=== PATIENT | female | born 1950 | race Caucasian/White ===

== ENCOUNTER 2017-10-18 10:08 | Day surgery (SDC) | payer OTHER ==
[2017-10-10 13:53] VITALS: BMI 38.7
[2017-10-18] MEDS ORDERED: PROPOFOL 20 ML ONE (11:28)
[2017-10-18] MEDS ORDERED: ONDANSETRON 4 MG/2 ML VIAL IVPUSH PRN (12:14)
[2017-10-18] MEDS ORDERED: oxyCODONE HCL 5 MG TABLET PO PRN (12:14)
[2017-10-18] MEDS ORDERED: LACTATED RINGERS SOLUTION 1,000 ML IV SCH (12:15)
[2017-10-18 13:25] VITALS: TEMP 98
[2017-10-18 13:37] VITALS: BP 122/73; PULSE 66
--- NOTE | 2017-10-23 19:01 | OP ---
DATE OF OPERATION: 10/18/2017 PREOPERATIVE DIAGNOSIS: Left carpal tunnel syndrome. POSTOPERATIVE DIAGNOSIS: Left carpal tunnel syndrome. OPERATIVE PROCEDURE: Left carpal tunnel release. ANESTHESIA: Local with sedation. COMPLICATIONS: None. ESTIMATED BLOOD LOSS: Minimal. INDICATION FOR PROCEDURE: The patient is a female with the above finding, indicated for operative treatment. Risks, benefits, and alternatives were discussed with the patient at length. Proper informed consent was obtained. PROCEDURE: After proper identification of the patient and the correct operative site, patient was brought to the operating room and placed supine on the operative table. Prominences were well padded. Sedation was given by the anesthesiologist. Local anesthesia was given with 2% lidocaine. Left upper extremity was prepped and draped in the usual sterile fashion. A well-padded tourniquet was placed with a sterile prep. Esmarch bandage to exsanguinate the left upper extremity. Tourniquet was inflated to 250 mmHg. A longitudinal incision was made over the proximal aspect of the palm. Incision was taken sharply through the skin with blunt and sharp dissection through the subcutaneous tissues. Palmar fascia was divided longitudinally. Transcarpal ligament along with the distal 4 cm of the antebrachial fascia was divided longitudinally under direct visualization with loupe magnification. This provided complete release of the median nerve at the wrist. Wound was irrigated with copious amounts of normal saline, repaired with a 5-0 nylon suture. Sterile dressings were applied. Patient was reversed from anesthesia and brought to the recovery room in stable condition. She tolerated the procedure well. Flower [id number]
== END 2017-10-18 13:35 | disposition home or self-care (01) ==
LOC: FASU 10:08
PROVIDERS: ATTEND Orthopaedic Surgery Hand Surgery
PROC: 01N50ZZ Release Median Nerve, Open Approach (ICD-10-PCS; principal; 2017-10-18 11:53)
DX: G56.02 Carpal tunnel syndrome, left upper limb (principal)
CPT/HCPCS: 94760

== ENCOUNTER → 2018-03-14 | Day surgery (SDC) | payer OTHER ==
[~2018-03-14] MED LIST: BUPIVACAINE HCL/PF 0.5% (5MG/ML) 10 ML VIAL ONE
[2018-03-14 09:30] LABS: BASO % 1.2 % (0-2.0); EOS % 2.5 % (0-4.5); HEMATOCRIT 44.5 % (32.4-45.2); HEMOGLOBIN 15.3 GM/dL (10.7-15.3); LYMPH % 33.9 % (8-40); MCH 31.7 pg (25.7-33.7); MCHC 34.3 g/dl (32.0-36.0); MEAN CELL VOLUME 92.2 fl (80-96); MEAN PLT VOLUME 7.7 fl (7.5-11.1); MONO % 12.2 % (3.8-10.2); NEUT % 50.2 % (42.8-82.8); PLATELET COUNT 243 K/MM3 (134-434); RBC 4.82 M/mm3 (3.60-5.2); RDW 12.7 % (11.6-15.6); WHITE BLOOD COUNT 6.1 K/mm3 (4.0-10.0)
[2018-03-14 09:42] LABS: PROTHROMBIN TIME (PATIENT) 11.3 SEC (9.7-13.0)
== END | disposition home or self-care (01) ==
LOC: JRADIR 09:05
PROVIDERS: ATTEND Orthopaedic Surgery Sports Medicine
PROC: BW1CYZZ Fluoroscopy of Lower Extremity using Other Contrast (ICD-10-PCS; principal; 2018-03-14)
PROC: 3E0U33Z Introduction of Anti-inflammatory into Joints, Percutaneous Approach (ICD-10-PCS; 2018-03-14)
PROC: 3E0U3BZ Introduction of Anesthetic Agent into Joints, Percutaneous Approach (ICD-10-PCS; 2018-03-14)
DX: M16.11 Unilateral primary osteoarthritis, right hip (principal); M25.551 Pain in right hip
CPT/HCPCS: 27095; 73525; G0260; 27093; 36415; 77002-TC-FY; 85025; 85610

== ENCOUNTER 2018-06-28 05:56 | Day surgery (SDC) | payer OTHER ==
[2018-06-28 06:41] VITALS: BMI 39.2
[2018-06-28] MEDS ORDERED: PROPOFOL 20 ML ONE ×2 (06:57)
[2018-06-28] MEDS ORDERED: LIDOCAINE HCL/PF 2% SDV 5ML VIAL ONE (06:58)
[2018-06-28] MEDS ORDERED: SUCCINYLCHOLINE CHLORIDE 200 MG/10 ML VIAL ONE (07:01)
[2018-06-28] MEDS ORDERED: ATROPINE SO4 0.4 MG/1 ML VIAL ONE (07:02)
[2018-06-28] MEDS ORDERED: MIDAZOLAM HCL 2 MG/2 ML SINGLE DOSE VIAL ONE (07:06)
[2018-06-28] MEDS ORDERED: ROCURONIUM BROMIDE 50 MG/5 ML VIAL ONE (07:07)
[2018-06-28] MEDS ORDERED: EPINEPHrine 1:1,000 1 MG/1 ML - 30ML VIAL (INJECTION) ONE (07:09)
[2018-06-28] MEDS ORDERED: BUPIVACAINE HCL/PF 0.5% (5MG/ML) 10 ML VIAL ONE (07:12)
[2018-06-28] MEDS ORDERED: BUPIVACAINE HCL/PF 2.5 MG/ML - 30 ML VIAL IJ ONE (07:40)
[2018-06-28] MEDS ORDERED: MINERAL OIL/PETROLATUM,WHITE 3.5 GM TUBE ONE (08:03)
[2018-06-28] MEDS ORDERED: DEXAMETHASONE SOD PHOSPHATE 4 MG/1 ML VIAL ONE (08:07)
[2018-06-28] MEDS ORDERED: ceFAZolin SODIUM 1 GM VIAL ONE (08:07)
[2018-06-28] MEDS ORDERED: ePHEDrine SULFATE 50 MG/1 ML AMPULE ONE (08:19)
[2018-06-28] MEDS ORDERED: DESFLURANE GAS 240 ML BOTTLE IH ONE (08:48)
[2018-06-28] MEDS ORDERED: GLYCOPYRROLATE 0.2 MG/1 ML VIAL ONE ×2 (09:26)
[2018-06-28] MEDS ORDERED: NEOSTIGMINE METHYLSULFATE 0.5 MG/ML - 10 ML MDV ONE (09:26)
[2018-06-28] MEDS ORDERED: KETOROLAC TROMETHAMINE 30 MG/1 ML VIAL IVPUSH ONE (09:55)
[2018-06-28 09:58] VITALS: TEMP 98.5
[2018-06-28] MEDS ORDERED: KETOROLAC TROMETHAMINE 30 MG/1 ML VIAL ONE (10:02)
[2018-06-28] MEDS ORDERED: PROMETHAZINE HCL 25 MG/1 ML VIAL IVPUSH PRN (10:46)
[2018-06-28] MEDS ORDERED: ONDANSETRON 4 MG/2 ML VIAL IVPUSH PRN (10:46)
[2018-06-28] MEDS ORDERED: oxyCODONE HCL 5 MG TABLET PO PRN ×2 (10:46)
--- NOTE | 2018-06-28 11:43 | OP ---
DATE OF OPERATION: 06/28/2018 PREOPERATIVE DIAGNOSIS: Right hip bursitis, gluteus medius tendinopathy. POSTOPERATIVE DIAGNOSIS: Right hip bursitis, gluteus medius tendinopathy. PROCEDURE: Right hip arthroscopy with bursectomy and gluteus medius repair. SURGEON: Abram Patel MD BUSINESS INTEGRATION ANALYST: Anthony Oakes MD, whose skillful assistance was necessary for the safe and timely performance of this procedure. Dr. Oakes was able to help provide limb positioning, drive the camera, assist in the passage and application of sutures and insertion of orthopedic fixation hardware. ANESTHESIA TYPE: General. POSTOPERATIVE CONDITION: Stable. COMPLICATIONS: None. IMPLANTS: [employer] Q-Fix anchor x1. INDICATIONS: This is a pleasant 67-year-old female who has been suffering from severe lateral hip pain. Treatments were offered including physical therapy, oral medications, as well as injections. Despite having had all these, the patient continued to experience pain. MRI demonstrated bursitis and tendinopathy. The patient did elect for lateral hip arthroscopy. Prior to surgery, the risks, benefits, and alternatives were discussed in detail, including bleeding, infection, neurovascular injury, need for further surgery, postoperative pain and stiffness, progression of tendinopathy. We discussed medical risks such as heart attack, stroke, DVT, PE, and . After addressing all the patients questions and concerns, she voiced understanding and elected to proceed. DESCRIPTION OF PROCEDURE: The patient was brought to the operating room where general anesthesia was administered. She was placed onto the hip arthroscopy table, maintaining the limbs without traction in a position of slight abduction. Patient was then prepped and draped in the usual sterile fashion. A preoperative dose of antibiotics was given, and the usual time-out procedure was performed. The portal sites were now marked out on the skin. An initial anterolateral portal was established using 11 blade. The spinal needle was then placed down to the level of the greater trochanter. It was then dilated, and the trocar was placed down to the level of the trochanter. The camera was now placed in, and the bursa was visualized. One proximal and one distal accessory portals were then established again utilizing the same technique. Utilizing the shaver as well as electrocautery, bursectomy was performed. The greater trochanter was now visualized including the gluteus medius as well as the origin of the vastus lateralis. The vastus lateralis appeared copasetic. The gluteus medius had frayed fibers and was mobile suggesting undersurface tear. In the area of greatest mobility, the shaver was gently passed through the tendon exposing there was torn gluteus medius under. Utilizing the shaver as well as the bur, the bone bed was prepared. A double-loaded Q-Fix anchor was drilled and then inserted to the greater trochanter. Excellent purchase was achieved. Utilizing a 90-degree suture passer, this was passed through the 2 sides of the gluteus medius tendon and used to secure it down over the footprint. Excellent coverage was achieved. At this point, the IT band was debrided over the repair site in order to provide less pressure directly over where the repair was. The portals were then sutured using 3-0 nylon. Sterile dressings were placed. The patient was transferred to the recovery room in stable condition. Flower [id number]
[2018-06-28 13:24] VITALS: BP 129/62; PULSE 78
== END 2018-06-28 13:20 | disposition home or self-care (01) ==
LOC: FASU 05:56
PROVIDERS: ATTEND Orthopaedic Surgery Sports Medicine
PROC: 0MQL4ZZ Repair Right Hip Bursa and Ligament, Percutaneous Endoscopic Approach (ICD-10-PCS; principal; 2018-06-28 08:18)
DX: M76.01 Gluteal tendinitis, right hip (principal); M71.551 Other bursitis, not elsewhere classified, right hip
CPT/HCPCS: 94760

== ENCOUNTER 2019-02-20 05:59 | Day surgery (SDC) | payer OTHER ==
[2019-02-14 18:19] VITALS: BMI 37.9
[2019-02-20] MEDS ORDERED: BUPIVACAINE HCL 0.25% 125 MG/50 ML VIAL ONE (07:11)
[2019-02-20] MEDS ORDERED: LIDOCAINE HCL 2% (20ML MULTI-DOSE VIAL) NR ONE (07:11)
[2019-02-20] MEDS ORDERED: SUCCINYLCHOLINE CHLORIDE 200 MG/10 ML VIAL ONE (07:22)
[2019-02-20] MEDS ORDERED: PROPOFOL 20 ML ONE (07:22)
[2019-02-20] MEDS ORDERED: MIDAZOLAM HCL 2 MG/2 ML SINGLE DOSE VIAL ONE ×2 (07:22)
[2019-02-20] MEDS ORDERED: ceFAZolin SODIUM 1 GM VIAL ONE (07:31)
[2019-02-20] MEDS ORDERED: ONDANSETRON 4 MG/2 ML VIAL ONE (07:31)
[2019-02-20] MEDS ORDERED: LIDOCAINE HCL 2% (50ML VIAL) INF ONE (07:48)
[2019-02-20 08:21] VITALS: TEMP 98.6
[2019-02-20 08:46] VITALS: PULSE 69
[2019-02-20 09:08] VITALS: BP 138/72
--- NOTE | 2019-02-21 11:10 | OP ---
DATE OF OPERATION: 02/20/2019 PREOPERATIVE DIAGNOSIS: Right thumb trigger finger. POSTOPERATIVE DIAGNOSIS: Right thumb trigger finger. OPERATIVE PROCEDURE: Right thumb trigger finger release. SURGEON: Nish Gore MD ANESTHESIA: Local sedation. COMPLICATIONS: None. ESTIMATED BLOOD LOSS: Minimal. INDICATION FOR PROCEDURE: The patient is a 68-year-old female with above findings indicated for operative treatment. Risks, benefits, and alternatives were discussed with patient at length. Proper informed consent was obtained. DESCRIPTION OF PROCEDURE: After proper identification of the patient and the correct operative site, patient was brought to the operating room and placed supine on the operating table. All bony prominences were well padded. Sedation with local anesthesia was given. Right upper extremity was prepped and draped in usual sterile fashion. A well-padded tourniquet was placed over the sterile prep. Esmarch bandage was used to exsanguinate right upper extremity. Tourniquet was inflated to 250 mmHg. A transverse incision was made over the thumb A1 loly. Incision was taken sharply through skin. Blunt dissection was performed through subcutaneous tissue. Neurovascular structures were identified and carefully protected. A1 loly was found to be severely thickened and was divided longitudinally. The patient then asked to flex and extend her thumb, and no further triggering was noted. Wound was irrigated and repaired with 5-0 fast absorbing plain gut suture. Sterile dressings were applied. Patient was brought to the recovery room in stable condition. She tolerated the procedure well. NISH GORE M.D. [id number]
== END 2019-02-20 09:09 | disposition home or self-care (01) ==
LOC: FASU 05:59
PROVIDERS: ATTEND Orthopaedic Surgery Hand Surgery
PROC: 0LN70ZZ Release Right Hand Tendon, Open Approach (ICD-10-PCS; principal; 2019-02-20 07:48)
DX: M65.311 Trigger thumb, right thumb (principal)

== ENCOUNTER 2020-06-24 10:12 | Day surgery (SDC) | payer OTHER ==
[2020-06-17 17:20] VITALS: BMI 36.8
[2020-06-24] MEDS ORDERED: LIDOCAINE HCL 2% (20ML MULTI-DOSE VIAL) ONE (11:17)
[2020-06-24] MEDS ORDERED: PROPOFOL 20 ML ONE (11:41)
[2020-06-24] MEDS ORDERED: MIDAZOLAM HCL 2 MG/2 ML SINGLE DOSE VIAL ONE (11:42)
[2020-06-24] MEDS ORDERED: LIDOCAINE HCL 2% (50ML VIAL) NR ONE ×4 (11:43→11:51)
[2020-06-24] MEDS ORDERED: KETOROLAC TROMETHAMINE 30 MG/1 ML VIAL ONE (12:07)
--- NOTE | 2020-06-24 12:22 | OP ---
DATE OF OPERATION: 06/24/2020 PREOPERATIVE DIAGNOSES: 1. Left long trigger finger. 2. Left ring trigger finger. POSTOPERATIVE DIAGNOSES: 1. Left long trigger finger. 2. Left ring trigger finger. PROCEDURE: 1. Left long trigger finger release. 2. Left ring trigger finger release. ANESTHESIA: Local with sedation. COMPLICATIONS: None. ESTIMATED BLOOD LOSS: Minimal. INDICATIONS FOR PROCEDURE: The patient is a 69-year-old female with the above finding, indicated for operative treatment. Risks, benefits and alternatives were discussed with her at length and proper informed consent was obtained. PROCEDURE: After proper identification of patient and the correct operative site, patient was brought to the operating room and placed supine on the operating table. All bony prominences were well padded. Sedation and local anesthesia were given. Left upper extremity was prepped and draped in the usual sterile fashion. A well-padded tourniquet was placed over the sterile prep. Esmarch bandage to exsanguinate the left upper extremity. Tourniquet was inflated to 250 mmHg. Longitudinal incisions were made over the A1 loly of the long finger and ring finger. Incisions were taken sharply through the skin with blunt dissection through the subcutaneous tissues. The A1 pulleys were identified and divided longitudinally. Patient was then asked to flex and extend her fingers and no further triggering was noted. The wound were repaired with 5-0 fast-absorbing plain gut suture as well as Dermabond. Sterile dressings were applied. Patient was brought to the recovery room in stable condition. She tolerated the procedure well. Flower [id number]
[2020-06-24 12:35] VITALS: TEMP 98.2
[2020-06-24 13:02] VITALS: BP 133/86; PULSE 71
== END 2020-06-24 13:15 | disposition home or self-care (01) ==
LOC: FASU 10:12
PROVIDERS: ATTEND Orthopaedic Surgery Hand Surgery
PROC: 0LN80ZZ Release Left Hand Tendon, Open Approach (ICD-10-PCS; 2020-06-24)
PROC: 0LN80ZZ Release Left Hand Tendon, Open Approach (ICD-10-PCS; principal; 2020-06-24 11:59)
DX: M65.332 Trigger finger, left middle finger (principal); M65.342 Trigger finger, left ring finger

== ENCOUNTER 2021-02-17 07:54 | Day surgery (SDC) | payer OTHER ==
[~2021-02-17 07:54] MED LIST changes: -BUPIVACAINE HCL/PF 0.5% (5MG/ML) 10 ML VIAL ONE; +LIDOCAINE HCL 2% (50ML VIAL) INF ONE
[2021-02-17 08:32] VITALS: BMI 37.5
[2021-02-17] MEDS ORDERED: MIDAZOLAM HCL 2 MG/2 ML SINGLE DOSE VIAL ONE (09:29)
[2021-02-17] MEDS ORDERED: PROPOFOL 20 ML ONE (09:36)
[2021-02-17] MEDS ORDERED: ONDANSETRON 4 MG/2 ML VIAL ONE (09:37)
[2021-02-17] MEDS ORDERED: DEXAMETHASONE SOD PHOSPHATE 4 MG/1 ML VIAL ONE (09:37)
[2021-02-17] MEDS ORDERED: LIDOCAINE HCL 2% (50ML VIAL) INF ONE (09:39)
[2021-02-17 10:40] VITALS: BP 130/70; PULSE 74
[2021-02-17 11:26] VITALS: TEMP 98.4
== END 2021-02-17 11:00 | disposition home or self-care (01) ==
LOC: FASU 07:54
PROVIDERS: ATTEND Orthopaedic Surgery Hand Surgery
PROC: 0LN70ZZ Release Right Hand Tendon, Open Approach (ICD-10-PCS; principal; 2021-02-17 09:43)
DX: M65.341 Trigger finger, right ring finger (principal)

== ENCOUNTER 2023-09-14 09:49 | Day surgery (SDC) | payer OTHER ==
[2023-09-11 11:59] VITALS: BMI 38.7
[2023-09-14] MEDS ORDERED: BUPIVACAINE HCL/PF 2.5 MG/ML - 30 ML VIAL IJ ONE ×2 (10:49→14:01)
[2023-09-14] MEDS ORDERED: LIDOCAINE HCL/PF 2% SDV 5ML VIAL ONE (11:28)
[2023-09-14] MEDS ORDERED: ceFAZolin SODIUM 1 GM VIAL ONE (11:28)
[2023-09-14] MEDS ORDERED: ONDANSETRON 4 MG/2 ML VIAL ONE (11:28)
[2023-09-14] MEDS ORDERED: DEXAMETHASONE SOD PHOSPHATE 4 MG/1 ML VIAL ONE (11:28)
[2023-09-14] MEDS ORDERED: MIDAZOLAM HCL 2 MG/2 ML SINGLE DOSE VIAL ONE (11:29)
[2023-09-14] MEDS ORDERED: PROPOFOL 20 ML ONE (11:29)
[2023-09-14] MEDS ORDERED: EPINEPHrine 1:1,000 1,000 MCG/ML ML ONE (13:48)
[2023-09-14] MEDS ORDERED: ONDANSETRON 4 MG/2 ML VIAL IVPUSH PRN (14:26)
[2023-09-14] MEDS ORDERED: ACETAMINOPHEN 500 MG TABLET (FP) PO PRN (14:26)
[2023-09-14] MEDS ORDERED: oxyCODONE HCL 5 MG TABLET PO PRN (14:26)
[2023-09-14] MEDS ORDERED: FENTANYL CITRATE/PF 50 MCG/ML VIAL ONE ×3 (14:28→15:06)
[2023-09-14] MEDS ORDERED: ACETAMINOPHEN 1000 MG/100 ML BAG IVPB ONE (14:28)
[2023-09-14] MEDS ORDERED: ACETAMINOPHEN INJECTION 100 ML IVPB ONE (14:28)
[2023-09-14] MEDS ORDERED: LACTATED RINGERS SOLUTION 1,000 ML IV SCH (14:30)
[2023-09-14] MEDS ORDERED: fentaNYL CITRATE 250 MCG/5 ML VIAL IVPUSH ONE (15:00)
[2023-09-14] MEDS ORDERED: oxyCODONE HCL 5 MG TABLET ONE (15:06)
[2023-09-14 16:34] VITALS: BP 141/72; PULSE 86; RESP 20; TEMP 97.4
== END 2023-09-14 16:34 | disposition home or self-care (01) ==
LOC: FASU 09:49
PROVIDERS: ATTEND Orthopaedic Surgery Sports Medicine
PROC: 0SBC4ZZ Excision of Right Knee Joint, Percutaneous Endoscopic Approach (ICD-10-PCS; 2023-09-14)
PROC: 0SBC4ZZ Excision of Right Knee Joint, Percutaneous Endoscopic Approach (ICD-10-PCS; 2023-09-14)
PROC: 0SCC4ZZ Extirpation of Matter from Right Knee Joint, Percutaneous Endoscopic Approach (ICD-10-PCS; 2023-09-14)
PROC: 0SBC0ZZ Excision of Right Knee Joint, Open Approach (ICD-10-PCS; principal; 2023-09-14 12:23)
DX: M71.561 Other bursitis, not elsewhere classified, right knee (principal); S83.241A Other tear of medial meniscus, current injury, right knee, initial encounter; S83.282A Other tear of lateral meniscus, current injury, left knee, initial encounter; M23.41 Loose body in knee, right knee; M65.9 Synovitis and tenosynovitis, unspecified; X58.XXXA Exposure to other specified factors, initial encounter; Y93.9 Activity, unspecified; Y92.9 Unspecified place or not applicable
CPT/HCPCS: 87070; 87205; 88304-TC; 88311-TC; 94760

== ENCOUNTER 2023-12-21 07:24 | Day surgery (SDC) | payer OTHER ==
[2023-12-11 11:26] VITALS: BMI 38.7
[2023-12-21] MEDS ORDERED: LIDOCAINE HCL/PF 2% SDV 5ML VIAL ONE (07:48)
[2023-12-21] MEDS ORDERED: MIDAZOLAM HCL 2 MG/2 ML SINGLE DOSE VIAL ONE (07:49)
[2023-12-21] MEDS ORDERED: PROPOFOL 20 ML ONE ×2 (07:49→09:48)
[2023-12-21] MEDS ORDERED: EPINEPHrine 1:1,000 1,000 MCG/ML ML ONE (08:18)
[2023-12-21] MEDS ORDERED: BUPIVACAINE HCL/PF 0.25% (2.5MG/ML) 10 ML VIAL ONE (08:18)
[2023-12-21] MEDS ORDERED: ceFAZolin SODIUM 1 GM VIAL ONE (09:24)
[2023-12-21] MEDS ORDERED: DEXAMETHASONE SOD PHOSPHATE 4 MG/1 ML VIAL ONE (09:24)
[2023-12-21] MEDS ORDERED: ONDANSETRON 4 MG/2 ML VIAL ONE (11:17)
[2023-12-21] MEDS ORDERED: KETOROLAC TROMETHAMINE 30 MG/1 ML VIAL ONE (11:17)
[2023-12-21] MEDS ORDERED: ONDANSETRON 4 MG/2 ML VIAL IVPUSH PRN (11:31)
[2023-12-21] MEDS ORDERED: oxyCODONE HCL 5 MG TABLET PO PRN ×2 (11:31)
[2023-12-21] MEDS ORDERED: PROMETHAZINE HCL 25 MG/1 ML VIAL IVPB PRN (11:31)
[2023-12-21] MEDS ORDERED: FENTANYL CITRATE/PF 50 MCG/ML VIAL ONE ×2 (11:33→11:53)
[2023-12-21] MEDS ORDERED: LACTATED RINGERS SOLUTION 1,000 ML IV SCH (11:45)
[2023-12-21] MEDS: ACETAMINOPHEN 1000 MG/100 ML BAG IVPB ONE (11:45)
[2023-12-21 11:48] VITALS: TEMP 97.8
[2023-12-21 12:45] VITALS: RESP 20
[2023-12-21] MEDS ORDERED: oxyCODONE HCL 5 MG TABLET ONE (12:46)
[2023-12-21 14:30] VITALS: BP 137/74; PULSE 80
== END 2023-12-21 13:15 | disposition home or self-care (01) ==
LOC: FASU 07:24
PROVIDERS: ATTEND Orthopaedic Surgery Sports Medicine
PROC: 0SBD4ZZ Excision of Left Knee Joint, Percutaneous Endoscopic Approach (ICD-10-PCS; principal; 2023-12-21 09:47)
PROC: 0SBD4ZZ Excision of Left Knee Joint, Percutaneous Endoscopic Approach (ICD-10-PCS; 2023-12-21 09:47)
DX: S83.242A Other tear of medial meniscus, current injury, left knee, initial encounter (principal); S83.282A Other tear of lateral meniscus, current injury, left knee, initial encounter; M17.12 Unilateral primary osteoarthritis, left knee; X58.XXXA Exposure to other specified factors, initial encounter; Y92.9 Unspecified place or not applicable; Y93.9 Activity, unspecified
CPT/HCPCS: 29855; 29880; C1776; 73560-TC-LT-FY; 94760; C1713; J0131